=== PATIENT | female | born 1985 | race Caucasian/White ===

== ENCOUNTER 2018-03-14 19:08 | Emergency (ER) | payer MEDICAID, SELFPAY ==
[2018-03-14 19:32] VITALS: PULSE 110; RESP 16; TEMP 36.5; O2SAT 99
--- NOTE | 2018-03-14 19:44 | W.ED.GENAD ---
Discharge Plan Disposition Patient Disposition: HOME Condition: Stable Discharge Details Chief Complaint: Sorethroat Clinical Impression: Acute pharyngitis Primary Care Provider: Karma Schafer ED Provider: Jason Vigil Discharge Instructions Instructions: Pharyngitis (ED) Additional Instructions: Home to rest. Warm, salt water gargles to aid in relieving discomfort. Small, frequent sips of fluids to maintain hydration. You received a dose of dexamethasone for its anti-inflammatory properties which will help your discomfort. May use Tylenol as needed for aches, pains. Return for any acute concern Medical Decision Making 32-year-old female with fever and sore throat. She 6 months . She arrives with a temperature of 36, pleasant and interactive with exam reveals an erythematous tonsillar pillars. Differential diagnosis includes viral syndrome versus streptococcal pharyngitis. Patient referred for rapid strep which is negative. I do feel she has pharyngitis. Discussed other options to treat including a single dose of dexamethasone. HPI General Mode of arrival: ambulatory. Date/Time Provider Initiated Documentation: 03/14/18 19:33. Limitations to Documentation: no limitations. Information obtained by: patient. History of Present Illness 32 year old F presents to the emergency department with the chief complaint of Sore throat and fever, positive sick contact with her father, described as moderate, Quality is described as aching, and is localized to the mouth. Patient reports no radiation. Patient started experiencing this day(s) and it has been constant. No relieving factors improve symptom(s), No exacerbating factors reported . Patient notes no other symptoms.. Patient did receive the following treatments prior to arrival, none Related Data Allergies Allergy/AdvReac Type Severity Reaction Status Date / Time No Known Allergies Allergy Unverified 03/14/18 19:32 General Stated Complaint: Sorethroat ARLENE: 3 Review of Systems Review of Systems 4 systems reviewed and otherwise - [facility] Surgical History Cholecystectomy (06/12/16) Social History Smoking/Tobacco Use Status: Never Exam Narrative Exam Narrative: GEN: awake, alert, oriented 3. Pleasant, well groomed, interactive. HEAD: Normocephalic, atraumatic ENT: Mucous membranes moist, oropharynx with erythematous tonsillar pillars without evidence of visible exudate and no asymmetry, External ear exam unremarkable, TMs unremarkable EYES: PERRL, EOMI NECK: Full ROM, no JOSELO, no menigismus CHEST/RESP: Nontender, clear to auscultation bilateral, no wheeze/rhonchi/rales CARDIOVASCULAR: RRR, no murmur, rub juanita. 2+ Rad pulse bilateral EXT: Full ROM, no edema, no rash Neuro: Grossly normal neurologic exam, conversant, interactive. Psych: Speech fluent, thoughts congruent, affect normal Course Vital Signs Temperature 36.5 C 03/14/18 19:32 Pulse 110 H 03/14/18 19:32 Respiratory Rate 16 03/14/18 19:32 Pulse Oximetry 99 03/14/18 19:32 Temperature 36.5 C 03/14/18 19:32 Temperature Source Temporal Artery Scan 03/14/18 19:32 Pulse 110 H 03/14/18 19:32 Respiratory Rate 16 03/14/18 19:32 Respiratory Effort 03/14/18 19:32 Blood Pressure Position Sitting 03/14/18 19:32 Pulse Oximetry 99 03/14/18 19:32 Oxygen Delivery Method Room Air 03/14/18 19:32 Oxygen Flow Rate 0 03/14/18 19:32
[2018-03-14] MEDS: Dexamethasone 4 MG TAB 10 MG PO (20:27)
[2018-03-14 20:29] VITALS: BP 114/73; PULSE 103; RESP 16; TEMP 37.2; O2SAT 97
== END 2018-03-14 20:33 | disposition home or self-care (01) ==
PROVIDERS: Emergency Provider Emergency Medicine; PCP Family Medicine
DX: O99.89 Other specified diseases and conditions complicating pregnancy, childbirth and the puerperium (principal); J02.9 Acute pharyngitis, unspecified; Z3A.26 26 weeks gestation of pregnancy
CPT/HCPCS: 87880; 99283; J8540

== ENCOUNTER 2018-05-02 14:04 | Outpatient (CLI) | payer MEDICAID, SELFPAY ==
[2018-05-02] MEDS: Betamet Acet/Betamet Na Ph Inj. 30 MG/5 ML 12 MG IM (14:33)
== END 2018-05-02 14:24 ==
PROVIDERS: PCP Family Medicine; Visit Provider Advanced Practice Midwife
DX: O26.613 Liver and biliary tract disorders in pregnancy, third trimester (principal); K83.1 Obstruction of bile duct; Z3A.34 34 weeks gestation of pregnancy
CPT/HCPCS: 96372; 59025; J0702

== ENCOUNTER 2018-05-02 14:47 | Outpatient (CLI) | payer MEDICAID, SELFPAY ==
[2018-05-02 15:04] LABS: Abs Immature Grans 0.06 k/cumm (0.0-0.09); Absolute Basophil Count 0.01 k/cumm (0.0-0.2); Absolute Lymphocyte Count 1.76 k/cumm (1.2-3.4); Absolute Monocyte Count 0.79 k/cumm (0.11-0.7); Absolute Neutrophil Count 6.47 k/cumm (1.2-6.7); Basophils % 0.1; Eosinophils % 1.1; HCT 32.7 % (36.0-46.0); HGB 11.2 g/dL (12.0-15.5); Immature Grans % 0.7; Lymphocytes % 19.2; Mean Corp. HGB Concentration 34.3 g/dL (32.0-36.0); Mean Corpuscular Hemoglobin 30.4 pg (27.0-33.0); Mean Corpuscular Volume 88.6 fL (80-95); Mean Platelet Volume 11.1 fL (8.0-11.0); Monocytes % 8.6; Neutrophils % 70.3; Platelet Count 216 x1000/uL (130-400); RBC 3.69 m/cumm (4.00-5.20); RBC Distribution Width 12.8 % (11.7-14.6); White Blood Cell Count 9.19 k/cumm (4.4-10.8)
[2018-05-02 15:49] LABS: ALT 44 U/L (12-78); AST 19 U/L (15-37); Albumin 2.9 g/dL (3.4-5.0); Alkaline Phosphatase 125 U/L (46-116); Anion Gap 11.2 mmol/L (3-11); BUN 10 mg/dL (7-18); Bilirubin, Total 0.2 mg/dL (0.2-1.0); CO2 22.8 mmol/L (21.0-32.0); CREATININE 0.53 mg/dL (0.55-1.02); Calcium 9.1 mg/dL (8.5-10.1); Chloride 104 mmol/L (98-107); Glucose 98 mg/dL (70-100); Potassium 4.3 mmol/L (3.5-5.1); Sodium 138 mmol/L (136-145); Total Protein 6.6 g/dL (6.4-8.2)
== END 2018-05-02 15:07 ==
PROVIDERS: Obstetrics & Gynecology; PCP Family Medicine; Visit Provider Advanced Practice Midwife
DX: O26.613 Liver and biliary tract disorders in pregnancy, third trimester (principal); K83.1 Obstruction of bile duct
CPT/HCPCS: 36415; 80053; 85025

== ENCOUNTER 2018-05-03 14:52 | Outpatient (CLI) | payer MEDICAID, SELFPAY ==
[2018-05-03] MEDS: Betamet Acet/Betamet Na Ph Inj. 30 MG/5 ML 12 MG IM (15:25)
== END 2018-05-03 15:12 ==
PROVIDERS: PCP Family Medicine; Visit Provider Obstetrics & Gynecology Gynecology
DX: O26.613 Liver and biliary tract disorders in pregnancy, third trimester (principal); K83.1 Obstruction of bile duct; Z3A.35 35 weeks gestation of pregnancy
CPT/HCPCS: 96372; 59025; J0702

== ENCOUNTER 2018-05-04 19:43 | Observation (INO) | payer MEDICAID, SELFPAY | END 2018-05-04 20:44 | disposition home or self-care (01) | LOC: OBS 19:45 | PROVIDERS: Admitting Provider Obstetrics & Gynecology Gynecology; PCP Family Medicine; Visit Provider Obstetrics & Gynecology Gynecology | DX: O36.8130 Decreased fetal movements, third trimester, not applicable or unspecified (principal); Z3A.35 35 weeks gestation of pregnancy; O26.613 Liver and biliary tract disorders in pregnancy, third trimester; K83.1 Obstruction of bile duct | CPT/HCPCS: 59025; G0378 ==

== ENCOUNTER 2018-05-06 16:02 | Outpatient (REF) | payer MEDICAID, SELFPAY | END 2018-05-06 16:22 | LOC: LBN 16:02 | PROVIDERS: PCP Family Medicine; Visit Provider Obstetrics & Gynecology Gynecology | DX: Z34.93 Encounter for supervision of normal pregnancy, unspecified, third trimester (principal); Z36.85 Encounter for antenatal screening for Streptococcus B | CPT/HCPCS: 87081 ==

== ENCOUNTER 2018-05-10 09:54 | Outpatient (CLI) | payer MEDICAID, SELFPAY | END 2018-05-10 10:14 | PROVIDERS: PCP Family Medicine; Visit Provider Obstetrics & Gynecology Gynecology | DX: O26.613 Liver and biliary tract disorders in pregnancy, third trimester (principal); K83.1 Obstruction of bile duct; Z3A.36 36 weeks gestation of pregnancy | CPT/HCPCS: 59025 ==

== ENCOUNTER 2018-05-11 02:11 | Outpatient (CLI) | payer MEDICAID, SELFPAY ==
[2018-05-11 11:16] LABS: ALT 32 U/L (12-78); AST 17 U/L (15-37); Alkaline Phosphatase 123 U/L (46-116); Anion Gap 12.2 mmol/L (3-11); BUN 11 mg/dL (7-18); Bilirubin, Total 0.3 mg/dL (0.2-1.0); CO2 22.8 mmol/L (21.0-32.0); CREATININE 0.52 mg/dL (0.55-1.02); Calcium 9.1 mg/dL (8.5-10.1); Chloride 101 mmol/L (98-107); Glucose 86 mg/dL (70-100); Potassium 4.1 mmol/L (3.5-5.1); Sodium 136 mmol/L (136-145); Total Protein 6.9 g/dL (6.4-8.2)
[2018-05-12 15:55] LABS: Bile Acids, Total 4 mcmol/L (<=10)
== END 2018-05-11 02:31 ==
PROVIDERS: PCP Family Medicine; Visit Provider Obstetrics & Gynecology Gynecology
DX: O26.613 Liver and biliary tract disorders in pregnancy, third trimester (principal); K83.1 Obstruction of bile duct
CPT/HCPCS: 36415; 80053; 82239

== ENCOUNTER 2018-05-11 11:23 | Outpatient (CLI) | payer MEDICAID, SELFPAY | END 2018-05-11 11:43 | PROVIDERS: PCP Family Medicine; Visit Provider Advanced Practice Midwife | DX: R69 Illness, unspecified (principal) ==

== ENCOUNTER 2018-05-13 11:44 | Outpatient (CLI) | payer MEDICAID, SELFPAY | END 2018-05-13 12:04 | PROVIDERS: PCP Family Medicine; Visit Provider Obstetrics & Gynecology | DX: O26.613 Liver and biliary tract disorders in pregnancy, third trimester (principal); K83.1 Obstruction of bile duct; Z3A.36 36 weeks gestation of pregnancy | CPT/HCPCS: 59025 ==

== ENCOUNTER 2018-05-16 20:59 | Inpatient (IN) | payer MEDICAID, SELFPAY ==
--- NOTE | 2018-05-16 21:24 | W.PM.HP.N ---
Date of service: 05/16/18 Time of Service: 21:31 Assessment and Plan (1) Cholestasis during in third trimester: Current visit: Yes Status: Acute We will proceed with Gallardo ripening of cervix and oxytocin induction of labor in the morning. Patient has consented to the induction of labor after counseling regarding the risks and benefits to the fetus of a late delivery. (2) : Current visit: No Status: Acute History of Present Illness Chief Complaint: Cholestasis of at 36w3d EGA Narrative: Patient is a 32-year-old female with an EDC of 06/10/18 who presents for IOL with a diagnosis of cholestasis of . Course Transfer of care at 33 weeks EGA from of [facility]. Patient was under the impression that she would not be allowed to have a vaginal center from the hospital secondary to a LGA baby and a questionable shoulder dystocia with previous . Issues this - Cholestasis of . Diagnosed in the third trimester treated successfully with Ursodiol 300mg TID with normalization of LFTs and bile salts. Her most recent testing on 05/13/2017 normal LFTs/normal vital cells. Patient has been monitored with twice weekly NSTs and was counseled regarding induction of labor between 36 and 37 weeks EGA. -History of LGA infant. of a 9 pound 6 ounce female at 40 weeks EGA. Patient did not require having a shoulder dystocia per report no extra maneuvers were required to deliver the infant. -Social stressors. Patient and her are currently living apart. He will be present during labor and delivery. Total weight gain 10 pounds. 3rd trimester blood pressure 130/80. Size has been equal to dates. morphology ultrasound. Review of Systems Constitutional Comments: Reports feeling anxious about the induction of labor. Genitourinary Comments: No contractions good movement Musculoskeletal Comments: No edema PFSH Medical History Abnormal Pap smear of cervix (Acute) Depression (Chronic) Cholestasis during in third trimester (Acute) (Acute) Biliary colic (Resolved) Surgical History Cholecystectomy (Resolved 06/12/16) Social History Smoking/Tobacco Use Status: Never Drug use: Never Household members: children and other Details: living with her mom cathleen daughter Pooja. Estranged from FOB/H Mike. Number of Children: 1 Do you feel safe in your relationship?: Yes History History 2 Para 1 Hx # Term Pregnancies 1 Multiple births Hx # Pregnancies Ectopic pregnancies AB induced Hx Number of Living Children 1 AB spontaneous Past Pregnancies Del. Date GA/Weeks # Outcome Route Wgt Sex Labor Lgth Anesthesia Location Prov Complic Unknown 40 vaginal 9 lb 6 oz Female shoulder dystocia Delivery Date: On 05/06/18 @ 16:48 Chelsie Fontanez pt does not recall having SD. No extra maneuvers required. No injury to infant. Name: Pooja. Meds Home Medications Medication Instructions Recorded Confirmed Type 1 tab PO DAILY 04/25/18 05/10/18 History vitamin,calcium,yhkzvnya-gcds-lfvxf acid tablet ursodiol 300 mg capsule 300 mg PO TID cap 05/02/18 05/10/18 History Allergies Allergy/AdvReac Type Severity Reaction Status Date / Time No Known Allergies Allergy Unverified 05/06/18 13:00 Exam Const General: comfortable and anxious Nutritional Appearance: average body habitus Orientation: awake and oriented x3 Resp Effort & Inspection: normal respiratory effort Auscultation: clear to auscultation bilaterally Cardio Rate: regular rate Rhythm: regular rhythm Heart Sounds: S1 normal and S2 normal GI Inspection: other (Gravid estimated weight 3200 gms) Palpation: soft, no hepatosplenomegaly and other Speculum Exam - Cervix: normal appearance of the cervix and other (No effacement, no dilation on visual inspection) OB/External & Speculum: external exam normal Other: After verbal consent was obtained a bivalve speculum was placed into the vagina the cervix was cleansed with Betadine a 24 Lao Gallardo catheter was inserted past the internal loss and the Gallardo bulb insufflated with 30 cc of normal saline. Gallardo and was attached to the patient's leg. She tolerated procedure well. Skin General skin exam: no rashes or lesions noted Neuro DTR's: Rt Patellar: 0, Lt Patellar: 0, Rt Ankle: 1+ and Lt Ankle: 1+ Extrem General: normal to inspection, full ROM and normal capillary refill Results Labs : 05/16/18 21:27 05/16/18 21:27
--- NOTE | 2018-05-16 21:37 | HPE_ITS ---
Date of service: 05/16/18 Time of Service: 21:31 Assessment and Plan (1) Cholestasis during in third trimester: Current visit: Yes Status: Acute We will proceed with Gallardo ripening of cervix and oxytocin induction of labor in the morning. Patient has consented to the induction of labor after counseling regarding the risks and benefits to the fetus of a late delivery. (2) : Current visit: No Status: Acute History of Present Illness Chief Complaint: Cholestasis of at 36w3d EGA Narrative: Patient is a 32-year-old female with an EDC of 06/10/18 who presents for IOL with a adriane gnosis of cholestasis of . Course [facility] care at [facility]GA [facility] Patient was under the impression that she would not be allowed to have a vaginal center from the hospital secondary to a LGA baby and a questionable shoulder dystocia with previous . Issues this - Cholestasis of . Diagnosed in the third trimester treated successfully with Ursodiol 300mg TID with normalization of LFTs and bile salts. Her most recent testing on 05/13/2017 normal LFTs/normal vital cells. Patient has been monitored with twice weekly NSTs and was counseled regarding induction of labor between 36 and 37 weeks EGA. -History of LGA . of a 9 pound 6 ounce female at 40 weeks EGA. Patient did not require having a shoulder dystocia per report no extra maneuvers were required to deliver the infant. -Social stressors. Patient and her are currently living apart. He will be present during labor and delivery. Total weight gain 10 pounds. 3rd trimester blood pressure 130/80. Size has been equal to dates. morphology ultrasound. Review of Systems Constitutional Comments: Reports feeling anxious about the induction of labor. Genitourinary Comments: No contractions good movement Musculoskeletal Comments: No edema PFSH Medical History Abnormal Pap smear of cervix (Acute) Depression (Chronic) Cholestasis during in third trimester (Acute) (Acute) Biliary colic (Resolved) Surgical History Cholecystectomy (Resolved 06/12/16) Social History Smoking/Tobacco Use Status: Never Drug use: Never Household members: children and other Details: living with her mom cathleen daughter Pooja. Estranged from FOB/H Mike. Number of Children: 1 Do you feel safe in your relationship?: Yes History History 2 Para 1 Hx # Term Pregnancies 1 Multiple births Hx # Pregnancies Ectopic pregnancies AB induced Hx Number of Living Children 1 AB spontaneous Past Pregnancies Del. Date GA/Weeks # Outcome Route Wgt Sex Labor Lgth Anesthesia Location Prov Complic Unknown 40 vaginal 9 lb 6 oz Female shoulder dystocia Delivery Date: On 05/06/18 @ 16:48 Chelsie Fontanez pt does not recall having SD. No extra maneuvers required. No injury to . Name: Pooja. Meds Home Medications Medication Instructions Recorded Confirmed Type 1 tab PO DAILY 04/25/18 05/10/18 History vitamin,calcium,mxbzzzor-msnr-psroe acid tablet ursodiol 300 mg capsule 300 mg PO TID cap 05/02/18 05/10/18 History Allergies Allergy/AdvReac Type Severity Reaction Status Date / Time No Known Allergies Allergy Unverified 05/06/18 13:00 Exam Const General: comfortable and anxious Nutritional Appearance: average body habitus Orientation: awake and oriented x3 Resp Effort & Inspection: normal respiratory effort Auscultation: clear to auscultation bilaterally Cardio Rate: regular rate Rhythm: regular rhythm Heart Sounds: S1 normal and S2 normal GI Inspection: other (Gravid estimated weight 3200 gms) Palpation: soft, no hepatosplenomegaly and other Speculum Exam - Cervix: normal appearance of the cervix and other (No effacement, no dilation on visual inspection) OB/External & Speculum: external exam normal Other: After verbal consent was obtained a bivalve speculum was placed into the vagina the cervix was cleansed with Betadine a 24 Y[place] Gallardo catheter was inserted past the internal loss and the Gallardo bulb insufflated with 30 cc of normal saline. Gallardo and was attached to the patient's leg. She tolerated procedure well. Skin General skin exam: no rashes or lesions noted Neuro DTR's: Rt Patellar: 0, Lt Patellar: 0, Rt Ankle: 1+ and Lt Ankle: 1+ Extrem General: normal to inspection, full ROM and normal capillary refill Results Labs : 05/16/18 21:27 05/16/18 21:27
[2018-05-16 21:43] LABS: HCT 33.8 % (36.0-46.0); HGB 11.4 g/dL (12.0-15.5); Mean Corp. HGB Concentration 33.7 g/dL (32.0-36.0); Mean Corpuscular Hemoglobin 29.8 pg (27.0-33.0); Mean Corpuscular Volume 88.5 fL (80-95); Mean Platelet Volume 11.2 fL (8.0-11.0); Platelet Count 214 x1000/uL (130-400); RBC 3.82 m/cumm (4.00-5.20); RBC Distribution Width 13.2 % (11.7-14.6); White Blood Cell Count 10.57 k/cumm (4.4-10.8)
[2018-05-16 21:54] LABS: ALT 31 U/L (12-78); AST 14 U/L (15-37); Albumin 2.9 g/dL (3.4-5.0); Alkaline Phosphatase 137 U/L (46-116); Anion Gap 14.4 mmol/L (3-11); BUN 14 mg/dL (7-18); Bilirubin, Total 0.2 mg/dL (0.2-1.0); CO2 20.6 mmol/L (21.0-32.0); CREATININE 0.57 mg/dL (0.55-1.02); Calcium 9.3 mg/dL (8.5-10.1); Chloride 102 mmol/L (98-107); Glucose 111 mg/dL (70-100); Potassium 3.2 mmol/L (3.5-5.1); Sodium 137 mmol/L (136-145); Total Protein 7.3 g/dL (6.4-8.2)
[2018-05-16] MEDS: diphenhydrAMINE 25 MG CAP PO (23:40)
[2018-05-17] MEDS: Lactated Ringers 1,000 ML 125 ML IV ×3 (06:50→18:37)
[2018-05-17] MEDS: Ursodiol 300 MG CAP PO (08:53)
[2018-05-18] MEDS: Ursodiol 300 MG CAP PO (08:55)
--- NOTE | 2018-05-18 09:43 | W.PM.DS.N ---
DS: Diagnosis Discharge Diagnosis (1) Cholestasis during in third trimester: Status: Acute (2) : Status: Acute Discharge Plan Disposition Patient Disposition: HOME Condition: Fair Discharge Details Reason For Visit: [id number] EGLes CHOLESTASIS OF Admit Date/Time: 05/16/18 20:59 Admit Provider: Chelsie Fontanez Attending Provider: Chelsie Fontanez Primary Care Provider: Karma Schafer [place] [facility] Course Hospital Course: Admitted at 36-6/7 weeks estimated gestational age to the center for Gallardo balloon cervical ripening and induction of labor for well-controlled cholestasis of . Gallardo was inserted evening of 05/16/2018 and by the following morning she was 3 cm dilated. Oxytocin induction of labor that was then performed she would not to have a spontaneous vaginal delivery of a viable male infant over a first-degree perineal laceration. 150 cc blood loss shortly after delivery the infant was noted to have decreased oxygen saturation and required oxygen. He was subsequently transferred to NICU at [facility]. Patient was discharged to home with the intention traveling to [facility] on day 1. She will stoip her Ursodiol prescription at discharge. Home Meds and New Rx's Prescriptions: No Action prenat.vits,uma,gqa-vump-pinpo tablet 1 tab PO DAILY RF: 0 ursodiol 300 mg capsule 300 mg PO TID RF: 0 Discharge Instructions Stand Alone Forms: BC Instructions, BC Post Vaginal Deliver Activity:: Activity as Tolerated Equipment/Supplies:: No Equipment Needed Diet:: As Tolerated Discharge Orders Discharge Orders: Discharge Order (Routine); Ordered 05/18/18 Ordered By: Chelsie Fontanez Exam Narrative Exam Narrative: Patient reports that she did not sleep well during the night was anxious about the status of her infant Rah. Both pink discharge this morning she would like to travel to [facility] to see her . She was given discharge instructions regarding activity level she will use Motrin for discomfort. She plans to pump breastmilk. Const General: comfortable and no acute distress Orientation: alert, awake and oriented x3 Chest Breast inspection: normal inspection of the breasts Resp Effort & Inspection: normal respiratory effort GI Palpation: soft (Fundus firm at 2 fingerbreadths below the umbilicus no RUQ) External Female Exam: external appearance normal (Sutures are well approximated no labial or perineal edema) Neuro General: no focal motor deficits Extrem General: normal to inspection, full ROM and normal capillary refill Psych Appearance: grossly normal Mental Status: mental status grossly normal (Patient reports that she feels better now that her infant is on room air an) DS: Data Vitals/I&O Vitals and I&O: Intake & Output 05/17/18 05/17/18 05/18/18 11:59 23:59 11:59 Intake Total 1472.917 / 1472.917 Balance 1472.917 / 1472.917 Weight 175 lb Intake: IV 1472.917 / 1472.917 PFSH Medical History Abnormal Pap smear of cervix (Acute) Depression (Chronic) Cholestasis during in third trimester (Acute) (Acute) Biliary colic (Resolved) Surgical History Cholecystectomy (Resolved 06/12/16) Social History Smoking/Tobacco Use Status: Never Drug use: Never Household members: children and other Details: living with her mom cathleen daughter Pooja. Estranged from [facility]. Number of Children: 1 Do you feel safe in your relationship?: Yes History History 2 Para 2 Hx # Term Pregnancies 2 Multiple births Hx # Pregnancies Ectopic pregnancies AB induced Hx Number of Living Children 2 AB spontaneous Past Pregnancies Del. Date GA/Weeks # Outcome Route Wgt Sex Labor Lgth Anesthesia Location Prov Complic Unknown 40 vaginal 9 lb 6 oz Female shoulder dystocia 05/17/18 37 No Successful vaginal 6 lb 15 oz aoc Delivery Date: 05/17/18 On 05/18/18 @ 09:47 Chelsie Fontanez IOL at 37wEGA for stable cholestasis. SVD. Adelina Monreal. Transferred to [facility] NICU after resp issues. Delivery Date: On 05/06/18 @ 16:48 Chelsie Fontanez pt does not recall having SD. No extra maneuvers required. No injury to infant. Name:
--- NOTE | 2018-05-18 09:48 | DSE_ITS ---
DS: Diagnosis Discharge Diagnosis (1) Cholestasis during in third trimester: Status: Acute (2) : Status: Acute Discharge Plan Disposition Patient Disposition: HOME Condition: Fair Discharge Details Reason For Visit: [id number] EGLes CHOLESTASIS OF Admit Date/Time: 05/16/18 20:59 Admit Provider: Chelsie Fontanez Attending Provider: Chelsie Fontanez Primary Care Provider: Karma Schafer [place] [facility] Course Hospital Course: Admitted at 36-6/7 weeks estimated gestational age to the center for Gallardo balloon cervical ripening and induction of labor for well-controlled cholestasis of . Gallardo was inserted evening of 05/16/2018 and by the following morning she was 3 cm dilated. Oxytocin induction of labor that was then performed she would not to have a spontaneous vaginal delivery of a viable male infant over a first-degree perineal laceration. 150 cc blood loss shortly after delivery the infant was noted to have decreased oxygen saturation and required oxygen. He was subsequently transferred to NICU at [facility]. Patient was discharged to home with the intention traveling to [facility] on day 1. She will stoip her Ursodiol prescription at discharge. Home Meds and New Rx's Prescriptions: No Action prenat.vits,uma,xxw-pmdb-gvpxi tablet 1 tab PO DAILY RF: 0 ursodiol 300 mg capsule 300 mg PO TID RF: 0 Discharge Instructions Stand Alone Forms: BC Instructions, BC Post Vaginal Deliver Activity:: Activity as Tolerated Equipment/Supplies:: No Equipment Needed Diet:: As Tolerated Discharge Orders Discharge Orders: Discharge Order (Routine); Ordered 05/18/18 Ordered By: Chelsie Fontanez Exam Narrative Exam Narrative: Patient reports that she did not sleep well during the night was anxious about the status of her infant Rah. Both pink discharge this morning she would like to travel to [facility] to see her . She was given discharge instructions regarding activity level she will use Motrin for discomfort. She plans to pump breastmilk. Const General: comfortable and no acute distress Orientation: alert, awake and oriented x3 Chest Breast inspection: normal inspection of the breasts Resp Effort & Inspection: normal respiratory effort GI Palpation: soft (Fundus firm at 2 fingerbreadths below the umbilicus no RUQ) External Female Exam: external appearance normal (Sutures are well approximated no labial or perineal edema) Neuro General: no focal motor deficits Extrem General: normal to inspection, full ROM and normal capillary refill Psych Appearance: grossly normal Mental Status: mental status grossly normal (Patient reports that she feels better now that her infant is on room air an) DS: Data Vitals/I&O Vitals and I&O: Intake & Output 05/17/18 05/17/18 05/18/18 11:59 23:59 11:59 Intake Total 1472.917 / 1472.917 Balance 1472.917 / 1472.917 Weight 175 lb Intake: IV 1472.917 / 1472.917 PFSH Medical History Abnormal Pap smear of cervix (Acute) Depression (Chronic) Cholestasis during in third trimester (Acute) (Acute) Biliary colic (Resolved) Surgical History Cholecystectomy (Resolved 06/12/16) Social History Smoking/Tobacco Use Status: Never Drug use: Never Household members: children and other Details: living with her mom cathleen daughter Pooja. Estranged from [facility]. Number of Children: 1 Do you feel safe in your relationship?: Yes History History 2 Para 2 Hx # Term Pregnancies 2 Multiple births Hx # Pregnancies Ectopic pregnancies AB induced Hx Number of Living Children 2 AB spontaneous Past Pregnancies Del. Date GA/Weeks # Outcome Route Wgt Sex Labor Lgth Anesthesia Location Prov Complic Unknown 40 vaginal 9 lb 6 oz Female shoulder dystocia 05/17/18 37 No Successful vaginal 6 lb 15 oz aoc Delivery Date: 05/17/18 On 05/18/18 @ 09:47 Chelsie Fontanez IOL at 37wEGA for stable cholestasis. SVD. Adelina Monreal. Transferred to [facility] NICU after resp issues. Delivery Date: On 05/06/18 @ 16:48 Chelsie Fontanez pt does not recall having SD. No extra maneuvers required. No injury to infant. Name:
== END 2018-05-18 11:20 | disposition home or self-care (01) | DRG 805 ==
PROVIDERS: Admitting Provider Obstetrics & Gynecology Gynecology; PCP Family Medicine; Visit Provider Obstetrics & Gynecology Gynecology
DX: O70.0 First degree perineal laceration during delivery (principal); Z37.0 Single live birth; K83.1 Obstruction of bile duct; Z3A.36 36 weeks gestation of pregnancy; O26.613 Liver and biliary tract disorders in pregnancy, third trimester; O99.344 Other mental disorders complicating childbirth; F32.9 Major depressive disorder, single episode, unspecified
CPT/HCPCS: 80053; 85027; 86850; 86900; 86901; 87340; 87389; NC; 86762; J3010; J3490

== ENCOUNTER 2018-05-24 14:52 | Outpatient (CLI) | payer MEDICAID, SELFPAY ==
[2018-05-24 15:33] LABS: Abs Immature Grans 0.07 k/cumm (0.0-0.09); Absolute Basophil Count 0.02 k/cumm (0.0-0.2); Absolute Eosinophil Count 0.17 k/cumm (0.0-0.7); Absolute Lymphocyte Count 2.11 k/cumm (1.2-3.4); Absolute Monocyte Count 0.61 k/cumm (0.11-0.7); Absolute Neutrophil Count 3.57 k/cumm (1.2-6.7); Basophils % 0.3; Eosinophils % 2.6; HCT 36.8 % (36.0-46.0); HGB 12.2 g/dL (12.0-15.5); Immature Grans % 1.1; Lymphocytes % 32.2; Mean Corp. HGB Concentration 33.2 g/dL (32.0-36.0); Mean Corpuscular Hemoglobin 29.6 pg (27.0-33.0); Mean Corpuscular Volume 89.3 fL (80-95); Mean Platelet Volume 10.6 fL (8.0-11.0); Monocytes % 9.3; Neutrophils % 54.5; Platelet Count 293 x1000/uL (130-400); RBC 4.12 m/cumm (4.00-5.20); RBC Distribution Width 13.1 % (11.7-14.6); White Blood Cell Count 6.55 k/cumm (4.4-10.8)
[2018-05-24 16:37] LABS: ALT 52 U/L (12-78); AST 24 U/L (15-37); Albumin 3.3 g/dL (3.4-5.0); Alkaline Phosphatase 124 U/L (46-116); BUN 17 mg/dL (7-18); Bilirubin, Total 0.3 mg/dL (0.2-1.0); Calcium 8.9 mg/dL (8.5-10.1); Chloride 106 mmol/L (98-107); Glucose 90 mg/dL (70-100); Potassium 4.2 mmol/L (3.5-5.1); Sodium 141 mmol/L (136-145); Total Protein 7.1 g/dL (6.4-8.2)
== END 2018-05-24 15:12 ==
PROVIDERS: PCP Family Medicine; Visit Provider Obstetrics & Gynecology
DX: O26.613 Liver and biliary tract disorders in pregnancy, third trimester (principal); K83.1 Obstruction of bile duct
CPT/HCPCS: 36415; 80053; 85025

== ENCOUNTER 2018-12-15 13:50 | Outpatient (REF) | payer MEDICAID, SELFPAY ==
[2018-12-17 15:01] LABS: HSV 1 DNA Result Negative; HSV 2 DNA Result Negative; Specimen Description Nasal; Varicella Zoster DNA Result Negative
== END 2018-12-15 14:10 ==
LOC: NCHCN 13:50
PROVIDERS: PCP Family Medicine; Visit Provider Nurse Practitioner Family
DX: J34.89 Other specified disorders of nose and nasal sinuses (principal)
CPT/HCPCS: 87077; 87529; 87798; 87070; 87186

== ENCOUNTER 2019-03-01 11:52 | Emergency (ER) | payer MEDICAID, SELFPAY ==
[2019-03-01] VITALS (25 sets, daily range): BP systolic 107–139; BP diastolic 71–92; PULSE 67–84; RESP 11–23; TEMP 36.6; O2SAT 96–98
[2019-03-01] MEDS: Ibuprofen 600 MG TAB PO (12:42)
--- NOTE | 2019-03-01 12:45 | W.ED.GENAD ---
Discharge Plan Disposition Patient Disposition: HOME Condition: Improving Discharge Details Chief Complaint: Chest Pain Clinical Impression: Acute chest wall pain Primary Care Provider: Karma Schafer ED Provider: [place] Home Meds and New Rx's Prescriptions: No Action prenat.vits,uma,noc-vcmo-rthon tablet 1 tab PO DAILY RF: 0 citalopram [Celexa] 10 mg tablet 20 mg PO DAILY RF: 0 cholecalciferol (vitamin D3) 2,000 unit tablet 6,000 unit PO DAILY RF: 0 ferrous sulfate [Feosol] 325 mg (65 mg iron) tablet 325 mg PO DAILY RF: 0 Discharge Instructions Instructions: Chest Wall Pain (ED) Additional Instructions: 1. Drink plenty of fluids. 2. Continue all medications as prescribed. 3. Acetaminophen 1000mg every 4 hours (up to 5 time a day) and/or ibuprofen 600mg every 6 hours as needed for fever or pain. 4. Activity as tolerated. Return to the Emergency Department (ED) if your condition worsens, does not improve as expected, or for ANY other concerns. Specifically, return if you have new or uncontrolled pain, worsening fever, difficulty breathing, vomiting, or are unable to drink fluids. Medical Decision Making 33-year-old with a past medical history of cholestasis/biliary disease associate with . Transferred here via EMS after developing sudden onset of right-sided chest wall pain while breast-feeding her 9-month-old . Pain was sudden onset and localized to her right lateral chest. Symptoms were worsened by positional change and palpation. On arrival in no distress with focal right chest wall tenderness which reproduced subjective pain. EKG, bedside echo, and labs nondiagnostic. Clinically improved after receiving oral ibuprofen. Discussed likely musculoskeletal etiology with low pretest probability of ACS, PE, great vessel disease with both patient and her . Discharged with a plan for OTC analgesia and outpatient follow-up. Given usual and customary return instructions prior to discharge. Medical Records Medical records reviewed: Yes I reviewed the patient's medical records. Imaging Data Radiologic Study: Attestation: I personally reviewed and interpreted this imaging study as follows: Imaging: Ultrasound (Bedside cardiac study: No pericardial effusion, normal LVEF, no RV strain. Dependent pulmonary views with no evidence of pleural effusion, focal consolidation, or interstitial syndrome. Interviewed independently contemporaneously by myself. Images saved.) Lab Data Lab results reviewed: Yes I reviewed the patient's lab results. Lab results narrative: Lab Results 03/01/19 Range/Units 13:15 Sodium 141 (136-145) mmol/L Potassium 3.8 (3.5-5.1) mmol/L Chloride 105 (98-107) mmol/L Carbon Dioxide 25.9 (21.0-32.0) mmol/L Anion Gap 10.1 (3-11) mmol/L BUN 16 (7-18) mg/dL Creatinine 0.50 L (0.55-1.02) mg/dL Estimated GFR/1.73 m2 >= 60.00 (mL/min/1.73m2) Glucose 90 (74-106) mg/dL Calcium 8.9 (8.5-10.1) mg/dL Total Bilirubin 0.4 (0.2-1.0) mg/dL Conjugated Bilirubin 0.09 (0.00-0.20) mg/dL AST 17 (15-37) U/L ALT 36 (14-59) U/L Alkaline Phosphatase 109 (46-116) U/L Total Protein 7.4 (6.4-8.2) g/dL Albumin 3.7 (3.4-5.0) g/dL ECG Data Attestation: I personally reviewed and interpreted this ECG (s) as follows: Prior ECG tracings: not available for review Interpretation: Sinus rhythm 81 bpm with normal axis and intervals no acute ST changes. Interpreted independently contemporaneously by myself. HPI 33-year-old woman with a past medical history which includes biliary colic/cholestasis. Transported here via EMS after developing a sudden onset of severe right chest wall pain today. Was breast-feeding her 9-month-old when she noted worsening pain localized to her right posterior lateral chest wall. Pain became maximally severe in intensity and unremitting. Pain was worse with positional change and inspiration. By time of transport here has had improvement in symptoms with persistent focal pain localized to her right lateral chest right lateral chest wall. Denies history of recent trauma, similar symptoms symptoms, palpitations, tachycardia, generalized abdominal pain. She has no history of VTE and denies atypical lower extremity pain or swelling. General Date/Time Provider Initiated Documentation: 03/01/19 12:33. Related Data Home Medications Medication Instructions Recorded Confirmed prenat.vits,uma,xae-ltgu-jerjn 1 tab PO DAILY 04/25/18 03/01/19 cholecalciferol (vitamin D3) 2,000 6,000 unit PO DAILY tab 06/07/18 03/01/19 unit tablet citalopram 10 mg tablet 20 mg PO DAILY 06/07/18 03/01/19 ferrous sulfate 325 mg (65 mg 325 mg PO DAILY tab 06/07/18 03/01/19 iron) tablet Allergies Allergy/AdvReac Type Severity Reaction Status Date / Time No Known Allergies Allergy Unverified 03/01/19 11:59 General Stated Complaint: Chest Pain ARLENE: 2 Review of Systems All systems reviewed & are unremarkable except as noted in HPI and below PFSH Medical History Abnormal Pap smear of cervix (Acute) LGSIL. Colpo during . Plan Pap PP. Biliary colic (Resolved) Cholestasis during in third trimester (Acute) 03/23/18 Bile acids 15 (<10). AST 224. ALT 613. Rx with Ursodeoxycholic Acid. Bile acids and LFTs normalized. Plan: NST's twice weekly. Del between 37-38w. Or 36w if bile acids > 40. Depression (Chronic) exacerbated with this . Currently not living with /FOB. Has psychologist. Surgical History Cholecystectomy (Resolved 06/12/16) Social History Smoking/Tobacco Use Status: Never Alcohol Intake: never Drug use: Never Substance use type: does not use Household members: children and other Details: living with her mom cathleen daughter Pooja. Estranged from B/[facility]. Number of Children: 1 Do you feel safe in your relationship?: Yes History History 2 Para 2 Hx # Term Pregnancies 2 Multiple births Hx # Pregnancies Ectopic pregnancies AB induced Hx Number of Living Children 2 AB spontaneous Past Pregnancies Del. Date GA/Weeks # Outcome Route Wgt Sex Labor Lgth Anesthesia Location Prov Complic Unknown 40 vaginal 4.252 kg Female shoulder dystocia 05/17/18 37 No Successful vaginal 3.147 kg aoc 05/17/18 No Successful vaginal Male Chelsie O'alberto Delivery Date: On 05/06/18 @ 16:48 Chelsie Fontanez pt does not recall having SD. No extra maneuvers required. No injury to infant. Name: Pooja. Delivery Date: 05/17/18 On 05/18/18 @ 09:47 Chelsie Fontanez IOL at 37wEGA for stable cholestasis. SVD. Adelina Monreal. Transferred to [facility] NICU after resp issues. Delivery Date: 05/17/18 No notes to display Exam Narrative Exam Narrative: Nursing note and vital signs have been reviewed and noted. GENERAL: alert, active, no acute distress, well -hydrated, well-nourished HEENT: atraumatic/normocephalic, PERRLA, EOMI, conjunctiva clear, external ears/canals normal, nasal mucosa normal NECK: supple, full range of motion, no mass, normal lymphadenopathy, no thyromegaly CARDIOVASCULAR: RRR, no murmurs, nl pulses, no edema PULMONARY: nl effort, no audible wheezing or stridor, nl breath sounds with no focal deficit. Focal tenderness along seventh and eighth right posterior lateral ribs which reproduced subjective pain. No significant ecchymosis, erythema, or edema appreciated. ABDOMEN: soft, non-tender, non-distended, no mass, no organomegaly EXTREMITY: normal muscle tone, all joints with FROM, no deformity or tenderness SKIN: no exanthem appreciated NEURO: gross motor exam normal, normal stance and gait PSYCH: alert and oriented, Course Vital Signs Vital signs: Vital Signs Temperature 97.9 F 03/01/19 11:55 Pulse 76 03/01/19 11:55 Respiratory Rate 20 03/01/19 11:55 Blood Pressure 139/92 H 03/01/19 11:55 Pulse Oximetry 97 03/01/19 11:55 Temperature 97.9 F 03/01/19 11:55 Temperature Source Skin 03/01/19 11:55 Pulse 78 03/01/19 12:30 Pulse 79 03/01/19 12:40 Respiratory Rate 19 03/01/19 12:40 Respiratory Effort 03/01/19 12:05 Respiratory Depth Normal 03/01/19 12:05 Respiratory Pattern Normal 03/01/19 12:05 Blood Pressure 112/78 03/01/19 12:30 Blood Pressure Mean 86 03/01/19 12:30 Blood Pressure Position Sitting 03/01/19 11:55 Pulse Oximetry 98 03/01/19 12:40 Oxygen Delivery Method Room Air 03/01/19 11:55 Oxygen Flow Rate 0 03/01/19 11:55 Pain Level 1 03/01/19 12:42 Comment 03/01/19 11:55
[2019-03-01 13:41] LABS: ALT 36 U/L (14-59); AST 17 U/L (15-37); Albumin 3.7 g/dL (3.4-5.0); Alkaline Phosphatase 109 U/L (46-116); Anion Gap 10.1 mmol/L (3-11); BUN 16 mg/dL (7-18); Bilirubin, Direct 0.09 mg/dL (0.00-0.20); Bilirubin, Total 0.4 mg/dL (0.2-1.0); CO2 25.9 mmol/L (21.0-32.0); Calcium 8.9 mg/dL (8.5-10.1); Chloride 105 mmol/L (98-107); Glucose 90 mg/dL (74-106); Potassium 3.8 mmol/L (3.5-5.1); Sodium 141 mmol/L (136-145); Total Protein 7.4 g/dL (6.4-8.2)
== END 2019-03-01 15:00 | disposition home or self-care (01) ==
PROVIDERS: Emergency Provider Emergency Medicine; PCP Family Medicine
DX: R07.81 Pleurodynia (principal)
CPT/HCPCS: 36415; 80048; 80076; 93005; 99285; 93010

== ENCOUNTER 2019-03-16 16:55 | Outpatient (REF) | payer MEDICAID, SELFPAY ==
--- NOTE | 2019-03-16 15:30 | PAPFT_PTH ---
PATIENT: Janie Thompson LOC: [facility] U#:[id number] AGE/SX: 33/F ROOM: RE03/16/[address]: Karma Schafer : 1985 BED: DIS: 03/16/2019 SPEC #: [id number] RECD: 03/17/19 13:01 STATUS: ALEXUS REDaniel #: [id number] JASMYN: 03/16/19 15:[address]: Karma Schafer DEPT: COUNT INCLUDES [facility] Cytology RECD BY: Zayda Grace Tissues: 1 - CX/ENDOCX FOR PAP SMEARS Procedures: PAP THIN PREP/UVM Screening HPV DNA PROBE Comments: [id number] (CHLAMYDIA/GC)
[2019-03-20 14:34] LABS: Chlamydia Result Negative (Negative); GC Result Negative (Negative)
== END 2019-03-16 17:15 ==
LOC: NCHCN 16:55
PROVIDERS: PCP Family Medicine; Visit Provider Family Medicine
DX: Z12.4 Encounter for screening for malignant neoplasm of cervix (principal); Z11.51 Encounter for screening for human papillomavirus (HPV); Z01.419 Encounter for gynecological examination (general) (routine) without abnormal findings
CPT/HCPCS: 87491; 87591; 88142; 87624

== ENCOUNTER 2020-03-20 03:20 | Outpatient (CLI) | payer MEDICAID, SELFPAY ==
[2020-03-21 14:06] LABS: COVID-19 RT-PCR UVMMC Result Negative (Negative)
== END 2020-03-20 03:21 | disposition home or self-care (01) ==
PROVIDERS: PCP Family Medicine; Visit Provider Nurse Practitioner
DX: G47.33 Obstructive sleep apnea (adult) (pediatric) (principal)
CPT/HCPCS: U0003

== ENCOUNTER 2021-08-19 12:27 | Outpatient (REF) | payer MEDICAID, SELFPAY ==
[2021-08-19 15:54] LABS: HCT 41.6 % (36.0-46.0); HGB 13.5 g/dL (11.2-15.7); MCHC 32.5 % (32.0-36.0); MCV 86 fL (80-95); MPV 11.1 fL (8.0-11.0); Platelet Count 349 10^3/uL (130-400); RBC 4.82 10^6/uL (3.93-5.22); RDW 12.9 % (11.7-14.6); RDW-SD 40.6 fL; WBC 6.18 10^3/uL (4.4-10.8)
[2021-08-19 16:08] LABS: ALT 45 U/L (14-59); AST 21 U/L (15-37); Alkaline Phosphatase 76 U/L (46-116); Anion Gap 7.8 mmol/L (3-11); BUN 14 mg/dL (7-18); Bilirubin, Total 0.5 mg/dL (0.2-1.0); CO2 27.2 mmol/L (21.0-32.0); CREATININE 0.7 mg/dL (0.55-1.02); Calcium 8.7 mg/dL (8.5-10.1); Calculated LDL 143 mg/dL (<100); Chloride 105 mmol/L (98-107); Cholesterol 206 mg/dL (<200); Glucose 110 mg/dL (74-106); HDL Cholesterol 54 mg/dL (40-60); Potassium 4.2 mmol/L (3.5-5.1); Sodium 140 mmol/L (136-145); Total Protein 7.8 g/dL (6.4-8.2); Triglyceride 46 mg/dL (<150)
[2021-08-21 05:04] LABS: Vitamin D 25 Total 19.4 ng/mL (30-100)
== END 2021-08-19 12:28 | disposition home or self-care (01) ==
LOC: NCHCN 12:27
PROVIDERS: PCP Family Medicine; Visit Provider Nurse Practitioner Family
DX: G47.33 Obstructive sleep apnea (adult) (pediatric) (principal); Z13.220 Encounter for screening for lipoid disorders; E55.9 Vitamin D deficiency, unspecified
CPT/HCPCS: 80053; 80061; 82306; 85027

== ENCOUNTER 2022-06-04 19:31 | Emergency (ER) | payer MEDICAID, SELFPAY ==
[2022-06-04] VITALS (28 sets, daily range): BP systolic 120–164; BP diastolic 71–100; PULSE 68–87; RESP 9–24; TEMP 37.3; O2SAT 97
--- NOTE | 2022-06-04 19:30 | RT.EKG_ITS ---
APPROVED REPORT Exam: Resting ECG Reason for Exam: CHEST PAIN Patient Location: E HR:86 bpm ECG Measurements Heart Rate 86 AXIS CA 156 P 21 QRSd 79 QRS 54 QT 355 T 11 QTc 424 Conclusion Sinus rhythm...normal P axis, V-rate 60- 99 Physician: no stemi, inverted t wave in III but unchange from prior ekg from 2019
--- NOTE | 2022-06-04 20:06 | W.ED.GENAD ---
Discharge Plan Disposition Patient Disposition: Home Condition: Good Discharge Details Clinical Impression: Chest pain Primary Care Provider: Alannah Pizano ED Provider: Isaiah Tapia Home Meds and New Rx's Prescriptions: No Action citalopram [Celexa] 10 mg tablet 20 mg PO DAILY cholecalciferol (vitamin D3) 2,000 unit tablet 6,000 unit PO DAILY Discharge Instructions Instructions: Chest Pain (ED) Additional Instructions: At this time your work-up is negative and reassuring. As you suspected I do believe that your chest pain is likely secondary to a component of stress and life. Please follow-up closely with your counselor. If you notice any worsening of your symptoms, or any new symptoms such as vomiting, diarrhea, fever, chills, shortness of breath, chest pain, numbness, weakness, or fainting , please return immediately to the emergency department for reevaluation. Please follow up with your primary care provider as soon as possible for reassessment and reevaluation. As always, it was a pleasure participating in your medical care today. Referrals: Alannah Pizano [Primary Care Provider] - Medical Decision Making 36-year-old female with a past medical history of cholecystectomy, depression, presents today for evaluation of chest pain. Patient states that for the last months she has had on and off chest tightness. It will usually last 1 to 2 hours. It is associated with stress, and not associated with exertion. It is improved. She states I am mentally calm myself down and relax. She does feel winded with exertion but has no chest tightness or chest pain. She attributes this to her lack of exercise and recent weight gain. She does have a family history positive for cardiac disease in her father, but denies any personal history of cardiac disease. She has never smoked. She does not drink alcohol. She denies any cocaine use. Denies PE risk factors such as recent long car rides, immobilization, recent surgery, prior history of DVT or PE, family history of PE or DVT, morbid obesity, exogenous estrogen and smoking, hemoptysis, history of cancer. No other complaints at this time. She does state that she feels overwhelmed with life in general, and she is worried that this is the cause of her symptoms. No other complaints. No other modifying factors. She denies any cough, fever, chills, tearing or ripping sensation, actual chest pain, or bandlike sensation around the chest. Physical exam demonstrates a well-appearing female, no signs of acute distress. Vital signs normal. PERC score is low risk. Wells score is low risk. EKG shows no STEMI. There is an inverted T wave in lead III and slight T wave abnormality in V3, but no other significant abnormalities. I suspect that the patient's symptoms are likely mood and stress related, however these are diagnoses of exclusion, and we must certainly rule out other life-threatening etiologies. Differential is low but still includes ACS, PE, symptoms are clinically inconsistent with dissection. Will evaluate for these concerning etiologies, monitor closely and reassess. Additionally with the patient's permission we will consult mental health advocates for further discussion of potential outpatient counseling and support. 1:10 AM Laboratory work-up has returned, EKG stable, troponin normal, D-dimer elevated, CTA ordered, no acute process, PE or dissection per radiology. Laboratory work-up otherwise stable. Minimal elevation in transaminases. We will send hepatitis panel for outpatient review. Patient has had slightly elevated transaminases in the past. No excessive acetaminophen use. Potentially viral. Patient has been seen and assessed by mental health. They have established outpatient follow-up. Patient feels well and feels comfortable going home. Symptoms inconsistent at this time clinically with ACS, PE dissection or other life-threatening etiology. Patient stable for home use. Discussed red flags for which to return. I have extensively reviewed the treatment plan and discharge instructions with the patient. I have addressed all patient concerns at this time. The patient was made aware of what symptoms to monitor for that would warrant a return to the emergency department. Discussed the plan with the patient, they demonstrate verbal understanding and agreement with our assessment and plan at this time. The documentation in this chart was dictated using [employer] dictation software. Please excuse any dictation errors. FINDINGS: Pulmonary arteries: Normal. No pulmonary emboli. Aorta: Unremarkable. No aortic aneurysm. No aortic dissection. Lungs: Unremarkable. No consolidation. No masses. Pleural spaces: Unremarkable. No pneumothorax. No pleural effusion. Heart: Unremarkable. No cardiomegaly. No pericardial effusion. Lymph nodes: Unremarkable. No enlarged lymph nodes. Gallbladder and bile ducts: Cholecystectomy. Bones/joints: Unremarkable. No acute fracture. Soft tissues: Unremarkable. IMPRESSION: 1. No acute cardiopulmonary disease. 2. Cholecystectomy Thank you for allowing us to participate in the care of your patient. Dictated and Authenticated by: Kami Ceballos MD 06/04/2022 10:50 PM Eastern Time ([place] & [place]) HPI General Date/Time Provider Initiated Documentation: 06/04/22 19:39. HPI Narrative: 36-year-old female with a past medical history of cholecystectomy, depression, presents today for evaluation of chest pain. Patient states that for the last months she has had on and off chest tightness. It will usually last 1 to 2 hours. It is associated with stress, and not associated with exertion. It is improved. She states I am mentally calm myself down and relax. She does feel winded with exertion but has no chest tightness or chest pain. She attributes this to her lack of exercise and recent weight gain. She does have a family history positive for cardiac disease in her father, but denies any personal history of cardiac disease. She has never smoked. She does not drink alcohol. She denies any cocaine use. Denies PE risk factors such as recent long car rides, immobilization, recent surgery, prior history of DVT or PE, family history of PE or DVT, morbid obesity, exogenous estrogen and smoking, hemoptysis, history of cancer. No other complaints at this time. She does state that she feels overwhelmed with life in general, and she is worried that this is the cause of her symptoms. No other complaints. No other modifying factors. She denies any cough, fever, chills, tearing or ripping sensation, actual chest pain, or bandlike sensation around the chest. Related Data Home Medications Medication Instructions Recorded Confirmed cholecalciferol (vitamin D3) 50 6,000 unit PO DAILY 06/07/18 06/04/22 mcg (2,000 unit) tablet citalopram 10 mg tablet (Celexa) 20 mg PO DAILY 06/07/18 06/04/22 Allergies Allergy/AdvReac Type Severity Reaction Status Date / Time seasonal Allergy Uncoded 06/04/22 19:43 General Stated Complaint: Chest Pain ARLENE: 2 Review of Systems All systems reviewed & are unremarkable except as noted in HPI and below PFSH All Active Problems (Updated 06/04/22 @ 23:06 by Isaiah Tapia DO) Chest pain (Acute) Abnormal Pap smear of cervix (Acute) LGSIL. Colpo during . Plan Pap PP. Depression (Chronic) exacerbated with this . Currently not living with /FOB. Has psychologist. Cholestasis during in third trimester (Acute) 03/23/18 Bile acids 15 (<10). AST 224. ALT 613. Rx with Ursodeoxycholic Acid. Bile acids and LFTs normalized. Plan: NST's twice weekly. Del between 37-38w. Or 36w if bile acids > 40. (Acute) IOL with 05/17/18 M. [id number] Rah. Social History Smoking/Tobacco Use Status: Never Smoking risk assessment performed?: Yes Alcohol Intake: never Drug use: Never Substance use type: does not use Household members: children and other Details: living with her mom cathleen daughter Pooja. Estranged from B/[facility]. Number of Children: 1 Do you feel safe in your relationship?: Yes History History 2 Para 2 Hx # Term Pregnancies 2 Multiple births Hx # Pregnancies Ectopic pregnancies AB induced Hx Number of Living Children 2 AB spontaneous Past Pregnancies Del. Date GA/Weeks # Preg Succ Route Wgt Sex Labor Lgth Anesthesia Location Prov Complic Unknown 40 vaginal 4252.428 g Female shoulder dystocia 05/17/18 37 No vaginal 3146.797 g aoc 05/17/18 No vaginal Male Chelsie Snyder Delivery Date: Last Updated by: Chelsie Snyder M.D. pt does not recall having SD. No extra maneuvers required. No injury to infant. Name: Pooja. Delivery Date: 05/17/18 Last Updated by: Chelsie Snyder M.D. IOL at 37wEGA for stable cholestasis. . Adelina Monreal. Transferred to [facility] after resp issues. Exam Narrative Exam Narrative: 1.Const: Well-nourished, Well-developed, appearing stated age 2.Eyes: PERRL, no conjunctival injection, and symmetrical lids. 3.ENT: Atraumatic external nose and ears. Moist MM. Neck: Symmetric, trachea midline, No thyromegaly. 4.CVS: +S1/S2, No murmurs or gallops. Peripheral pulses 2+ and equal in all extremities. Brisk capillary refill in all extremities. 5.RESP: Unlabored respiratory effort. Clear to auscultation bilaterally. No wheezes rales or rhonchi 6.GI: Soft, Nontender/Nondistended, No hepatosplenomegaly. No guarding or rebound. 7.MSK: Normocephalic/Atraumatic, Extremities w/o deformity or ttp No cyanosis or clubbing, Normal movement of all extremities 8.Skin: Warm, Dry. No rashes or lesions. 9.Neuro: customer support engineer II-XII grossly intact. Sensation grossly intact, no focal neurologic deficits. 10.Psych: (AAO) x3. Appropriate mood and affect Course Vital Signs Vital signs: Vital Signs Temperature 37.3 C 06/04/22 19:38 Pulse 77 06/04/22 19:38 Respiratory Rate 16 06/04/22 19:38 Blood Pressure 140/76 06/04/22 19:38 Pulse Oximetry 97 06/04/22 19:38 Temperature 37.3 C 06/04/22 19:38 Temperature Source Oral 06/04/22 19:38 Pulse 77 06/04/22 19:38 Respiratory Rate 16 06/04/22 19:38 Respiratory Effort Normal, Non-Labored 06/04/22 19:53 Respiratory Depth Normal 06/04/22 19:53 Respiratory Pattern Normal 06/04/22 19:53 Blood Pressure 140/76 06/04/22 19:38 Blood Pressure Position Supine 06/04/22 19:38 Pulse Oximetry 97 06/04/22 19:38 Oxygen Delivery Method Room Air 06/04/22 19:38 Oxygen Flow Rate 0 06/04/22 19:38 Pain Level 0 06/04/22 19:38 POCUS Exam (ED) Limited Cardiac Exam DATE OF EXAM: 06/04/22 TIME OF EXAM: 20:06 PROVIDER THAT PERFORMED THE STUDY: Isaiah Tapia IS THIS A REPEAT EXAM DURING THIS ENCOUNTER: no REASON FOR EXAM: Chest pain VISUALIZED STRUCTURES: Left atrium, Left ventricle, Right ventricle and Interventricular septum VIEW OBTAINED: Parasternal long-axis and Parasternal short-axis PERTINENT FINDINGS/IMPRESSION: No apparent abnormalities Exam complete
[2022-06-04 20:12] LABS: Abs Immature Grans 0.04 10^3/uL (0.0-0.06); Absolute Basophil Count 0.03 10^3/uL (0.0-0.2); Absolute Eosinophil Count 0.19 10^3/uL (0.0-0.7); Absolute Lymphocyte Count 2.51 10^3/uL (1.2-3.4); Absolute Monocyte Count 0.61 10^3/uL (0.1-0.8); Absolute Neutrophil Count 5.15 10^3/uL (1.2-6.7); Basophils % 0.4; Eosinophils % 2.2; HCT 39.9 % (36.0-46.0); HGB 13.1 g/dL (11.2-15.7); Immature Grans % 0.5; Lymphocytes % 29.4; MCH 27.7 pg (27.0-33.0); MCHC 32.8 % (32.0-36.0); MCV 84 fL (80-95); MPV 10.1 fL (8.0-11.0); Monocytes % 7.2; Neutrophils % 60.3; Platelet Count 335 10^3/uL (130-400); RBC 4.73 10^6/uL (3.93-5.22); RDW 13.2 % (11.7-14.6); RDW-SD 40.5 fL; WBC 8.53 10^3/uL (4.4-10.8)
[2022-06-04 20:46] LABS: ALT 108 U/L (14-59); AST 64 U/L (15-37); Albumin 3.7 g/dL (3.4-5.0); Alkaline Phosphatase 88 U/L (46-116); BUN 15 mg/dL (7-18); Bilirubin, Total 0.3 mg/dL (0.2-1.0); CREATININE 0.8 mg/dL (0.55-1.02); Calcium 8.7 mg/dL (8.5-10.1); Chloride 107 mmol/L (98-107); Estimated GFR 99.09 (mL/min/1.73m2); Glucose 118 mg/dL (74-106); Potassium 3.8 mmol/L (3.5-5.1); Sodium 139 mmol/L (136-145); Total Protein 7.7 g/dL (6.4-8.2); Troponin I < 50 ng/L (<or=60)
[2022-06-04 20:51] LABS: D-Dimer 653 ng/mlFEU (<500)
--- NOTE | 2022-06-04 21:15 | DI.CT_ITS ---
Exam(s) CT CHEST PE CTA EXAM: CT CHEST PE CTA CLINICAL HISTORY: sob, chest tightness, r/o pe. TECHNIQUE: Imaging Protocol: CT angiography of the chest was performed using pulmonary embolus nurys col. Multi planar reconstructions were performed. CONTRAST MATERIAL: Intravenous: Omnipaque 350 Contrast volume: 100 cc COMPARISON: No exams were available for comparison FINDINGS: CHEST: PULMONARY ARTERIES: There are no intraluminal filling defects to suggest acute pulmonary emboli. LUNGS: There are no infiltrates nor evidence of pulmonary infarction.. There are no pleural effusions . MEDIASTINUM: There is no hilar nor mediastinal adenopathy. CARDIAC: Heart size is upper normal. There is no pericardial effusion.Caliber of the thoracic aorta is within normal limits. No evidence of aortic dissection. There is no significant shift of the inte rventricular septum. PARTIALLY VISUALIZED UPPERMOST ABDOMEN: No obvious findings OSSEOUS: No significant osseous lesions.. IMPRESSION: 1. No evidence of acute pulmonary emboli. No evidence of pulmonary infarction.No pleural effusions. 2. No acute pulmonary findings. 3. Essentially negative study. RADIATION DOSE DELIVERED: 551.74mGy.cm Total DLP DATA REPOSITORY: All CT scans at this facility are submitted to the National Radiology Data Registry (NRDR) Dose Index Registry (DIR) with the [employer] (ACR). RADIATION OPTIMIZATION: All CT scans at this facility use at least one of these dose optimization te chniques: automated exposure control; mA and/or kV adjustment per patient size (includes targeted exa ms where dose is matched to clinical indication); or iterative reconstruction.
[2022-06-04] MEDS: Omnipaque 350 MG/ML 100 ML BTL IJ (22:02)
[2022-06-04] MEDS: Normal Saline - Diluent 50 ML VIAL IJ (22:03)
--- NOTE | 2022-06-04 22:50 | DI.VRAD_ITS ---
PROCEDURE INFORMATION: Exam: CTA Chest With Contrast Exam date and time: 06/04/2022 9:59 PM Age: 36 years old Clinical indication: Pain; Chest pressure TECHNIQUE: Imaging protocol: Computed tomographic angiography of the chest with contrast. 3D rendering (Not supervised by radiologist): MIP and/or 3D reconstructed images were created by the technologist. Total images: 1875 COMPARISON: No relevant prior studies available. FINDINGS: Pulmonary arteries: Normal. No pulmonary emboli. Aorta: Unremarkable. No aortic aneurysm. No aortic dissection. Lungs: Unremarkable. No consolidation. No masses. Pleural spaces: Unremarkable. No pneumothorax. No pleural effusion. Heart: Unremarkable. No cardiomegaly. No pericardial effusion. Lymph nodes: Unremarkable. No enlarged lymph nodes. Gallbladder and bile ducts: Cholecystectomy. Bones/joints: Unremarkable. No acute fracture. Soft tissues: Unremarkable. IMPRESSION: 1. No acute cardiopulmonary disease. 2. Cholecystectomy. Dictated and Authenticated by: Kami Ceballos MD. Ordering:KARINA Colon MD
[2022-06-08 11:04] LABS: Hepatitis A Antibody IgM Negative (Negative); Hepatitis B Core Antibody Negative (Negative); Hepatitis B surface Ag Negative (Negative); Hepatitis C Ab w Rflx HCV PCR Negative (Negative)
== END 2022-06-04 23:23 | disposition home or self-care (01) ==
PROVIDERS: Emergency Provider Student in an Organized Health Care Education/Training Program; PCP Nurse Practitioner Family
DX: R07.89 Other chest pain (principal); R79.1 Abnormal coagulation profile; R74.01 Elevation of levels of liver transaminase levels
CPT/HCPCS: 36415; 71275; 80053; 81025; 86704; 86709; 86803; 87340; 93005; 93308; 99285; 84443; 84484; 85025; 85379; 93010; 99283; J3490

== ENCOUNTER 2022-07-02 17:23 | Emergency (ER) | payer MEDICAID, SELFPAY ==
[2022-07-02 17:28] VITALS: BP 143/90; PULSE 72; RESP 16; TEMP 36.7; O2SAT 97
--- NOTE | 2022-07-02 18:14 | ED.GENADUL_ITS ---
Discharge Plan Disposition Patient Disposition: Home Condition: Stable Discharge Details Clinical Impression: Elevated LFTs, Pruritus Primary Care Provider: Alannah Pizano ED Provider: Franco De Oliveira Home Meds and New Rx's Prescriptions: Continued citalopram [Celexa] 10 mg tablet 20 mg PO DAILY cholecalciferol (vitamin D3) 2,000 unit tablet 6,000 unit PO DAILY Discharge Instructions Additional Instructions: your liver function tests were elevated but your bilirubin level was normal follow up with your primary care provider within 1-2 weeks If you feel more ill, have severe pain, difficulty breathing or fevers return to the emergency department Medical Decision Making 36 yo female with hx of cholestasis during , prior cholecystectomy, comes in with 2 days of itching of her hands and feet and is worried about recurrent cholesasis. She denies fevers, chills, chest pain, dyspnea, abdomen pain, rashes. She arrives stable caox4 in no distress. She has clear lungs, no murmurs, soft nontender abdomen, no rashes, no lesions. Unclear etiology for her symptoms, will proceed with cbc, cmp, bilirubin and reassess. No respiratory symptoms and no rashes so doubt allergic reaction or anaphylaxis bilirubin unremarkable, does have elevated lft's which she's had in the past and states she's been told she has fatty liver in the past. HAs no abdominal tenderness and s/p cholecystectomy so do not feel acute imaging indicated. Advised to f/u with pcp, return precautions given Differential Diagnosis Differential Diagnosis: dermatitis, cholestasis Medical Records Medical records reviewed: Yes I reviewed the patient's medical records. HPI General Mode of arrival: ambulatory . Date/Time Provider Initiated Documentation: 07/02/22 17:40 . Limitations to Documentation: no limitations . Information obtained by: patient . History of Present Illness 36 year old F presents to the emergency department with the chief complaint of itching hands/feet, described as moderate, Patient started experiencing this day(s) (2) and it has been constant. No relieving factors improve symptom(s), No exacerbating factors reported . Patient notes no other symptoms.; denies chest pain, fever/chills and shortness of breath. Patient did receive the following treatments prior to arrival, none Related Data Home Medications Medication Instructions Recorded Confirmed cholecalciferol (vitamin D3) 50 6,000 unit PO DAILY 06/07/18 06/04/22 mcg (2,000 unit) tablet citalopram 10 mg tablet (Celexa) 20 mg PO DAILY 06/07/18 06/04/22 Allergies Allergy/AdvReac Type Severity Reaction Status Date / Time seasonal Allergy Uncoded 06/04/22 19:43 General Stated Complaint: GenMedical ARLENE: 3 Review of Systems All systems reviewed & are unremarkable except as noted in HPI and below Constitutional Constitutional: Denies chills, Denies fever(s) and Denies weakness Cardiovascular Cardiovascular: Denies chest pain and Denies dyspnea Respiratory Respiratory: Denies cough and Denies dyspnea Gastrointestinal Gastrointestinal: Denies abdominal pain, Denies nausea and Denies vomiting Integumentary/Breasts Skin/Breast: Denies rash Neurologic Neurologic: Denies weakness PFSH All Active Problems (Updated 07/02/22 @ 19:20 by Franco De Oliveira MD) Chest pain (Acute) Elevated LFTs (Acute) Pruritus (Acute) Abnormal Pap smear of cervix (Acute) LGSIL. Colpo during . Plan Pap PP. Depression (Chronic) exacerbated with this . Currently not living with /FOB. Has psychologist. Cholestasis during in third trimester (Acute) 03/23/18 Bile acids 15 (<10). AST 224. ALT 613. Rx with Ursodeoxycholic Acid. Bile acids and LFTs normalized. Plan: NST's twice weekly. Del between 37-38w. Or 36w if bile acids > 40. (Acute) IOL with 05/17/18 M. [id number] Rah. Social History Smoking/Tobacco Use Status: Never Smoking risk assessment performed?: Yes Alcohol Intake: never Drug use: Never Substance use type: does not use Household members: children and other Details: living with her mom cathleen daughter Pooja. Estranged from FOB/[facility]. Number of Children: 1 Do you feel safe in your relationship?: Yes History History 2 Para 2 Hx # Term Pregnancies 2 Multiple births Hx # Pregnancies Ectopic pregnancies AB induced Hx Number of Living Children 2 AB spontaneous Past Pregnancies Del. Date GA/Weeks # Preg Succ Route Wgt Sex Labor Lgth Anesth esia Location Prov Complic Unknown 40 vaginal 4252.428 g Female shoulder dystocia 05/17/18 37 No vaginal 3146.797 g aoc 05/17/18 No vaginal Male Chelsie Leslie nnor Delivery Date: Last Updated by: Chelsie Fontanez M.D. pt does not recall having SD. No extra maneuvers required. No injury to . Name: Pooja. Delivery Date: 05/17/18 Last Updated by: Chelsie Fontanez M.D. IOL at 37wEGA for stable cholestasis. SVD. Adelina Monreal. Transferred to [facility] [place] [place] NICU after resp issues. Exam Const General: no acute distress Orientation: alert HENMT Head: normal to inspection Ears: external ears normal General nose exam: external nose normal Mouth: moist mucous membranes Eyes General: appearance normal, both eyes and all related structures Neck Neck: normal visual inspection Resp Effort & Inspection: normal respiratory effort and able to speak in complete sentences Cardio Rate: regular rate GI Palpation: soft and nontender Skin General skin exam: no rashes or lesions noted Neuro General: patient alert and patient oriented x3 Extrem General: normal to inspection Psych Mental Status: mental status grossly normal Course Vital Signs Vital signs: Vital Signs Temperature 36.7 C 07/02/22 17:28 Pulse 72 07/02/22 17:28 Respiratory Rate 16 07/02/22 17:28 Blood Pressure 143/90 H 07/02/22 17:28 Pulse Oximetry 97 07/02/22 17:28 Temperature 36.7 C 07/02/22 17:28 Temperature Source Oral 07/02/22 17:28 Pulse 72 07/02/22 17:28 Respiratory Rate 16 07/02/22 17:28 Blood Pressure 143/90 H 07/02/22 17:28 Pulse Oximetry 97 07/02/22 17:28 Oxygen Delivery Method Room Air 07/02/22 17:28 Oxygen Flow Rate 0 07/02/22 17:28
[2022-07-02 18:23] LABS: Bilirubin Small (Negative); Blood Trace-intact (Negative); Clarity Clear (Clear); Glucose Negative (Negative); Ketones Negative (Negative); Leukocyte Esterase Negative (Negative); Nitrite Negative (Negative); Specific Gravity >= 1.030 (1.005-1.025)
[2022-07-02 18:28] LABS: Bacteria Few HPF (Negative); C & S Indicated? No; Casts Negative LPF (Negative); Crystals Negative HPF (Negative); Epithelial Cells Moderate HPF (Negative); Mucus Trace (Negative); WBC 0-2 HPF (0-5)
[2022-07-02 18:29] VITALS: RESP 16
[2022-07-02 18:52] LABS: Abs Immature Grans 0.01 10^3/uL (0.0-0.06); Absolute Basophil Count 0.01 10^3/uL (0.0-0.2); Absolute Eosinophil Count 0.14 10^3/uL (0.0-0.7); Absolute Lymphocyte Count 1.55 10^3/uL (1.2-3.4); Absolute Monocyte Count 0.59 10^3/uL (0.1-0.8); Basophils % 0.2; Eosinophils % 3.3; HCT 39.3 % (36.0-46.0); HGB 12.9 g/dL (11.2-15.7); Immature Grans % 0.2; Lymphocytes % 36.9; MCH 27.5 pg (27.0-33.0); MCHC 32.8 % (32.0-36.0); MCV 84 fL (80-95); MPV 10.3 fL (8.0-11.0); Neutrophils % 45.4; Platelet Count 221 10^3/uL (130-400); RBC 4.69 10^6/uL (3.93-5.22); RDW 13.4 % (11.7-14.6); RDW-SD 41.3 fL
[2022-07-02 18:53] LABS: Absolute Neutrophil Count 1.91 10^3/uL (1.2-6.7)
[2022-07-02 19:08] LABS: ALT 774 U/L (14-59); AST 179 U/L (15-37); Albumin 3.7 g/dL (3.4-5.0); Alkaline Phosphatase 164 U/L (46-116); Anion Gap 8.4 mmol/L (3-11); BUN 11 mg/dL (7-18); Bilirubin, Direct 0.1 mg/dL (0.0-0.2); Bilirubin, Total 0.3 mg/dL (0.2-1.0); CO2 25.6 mmol/L (21.0-32.0); CREATININE 0.7 mg/dL (0.55-1.02); Calcium 8.8 mg/dL (8.5-10.1); Chloride 108 mmol/L (98-107); Estimated GFR 116.31 (mL/min/1.73m2); Glucose 120 mg/dL (74-106); Magnesium 2.1 mg/dL (1.8-2.4); Potassium 3.4 mmol/L (3.5-5.1); Sodium 142 mmol/L (136-145); Total Protein 7.5 g/dL (6.4-8.2)
[2022-07-02 19:15] LABS: PTT Activated 25.8 sec (21.5-31.9)
[2022-07-02 19:39] VITALS: BP 138/82; PULSE 70; RESP 16; TEMP 36.7; O2SAT 97
[2022-07-06 11:46] LABS: Hepatitis A Antibody IgM Negative (Negative); Hepatitis B Core Antibody Negative (Negative); Hepatitis B surface Ag Negative (Negative); Hepatitis C Ab w Rflx HCV PCR Negative (Negative)
== END 2022-07-02 19:39 | disposition home or self-care (01) ==
PROVIDERS: Emergency Provider Emergency Medicine; PCP Nurse Practitioner Family
DX: L29.9 Pruritus, unspecified (principal); R79.89 Other specified abnormal findings of blood chemistry
CPT/HCPCS: 36415; 80053; 86704; 86709; 86803; 87340; 99282; 81003; 81015; 82248; 83735; 85025; 85610; 85730; 99283

== ENCOUNTER 2022-11-14 17:47 | Emergency (ER) | payer MEDICAID, SELFPAY ==
[2022-11-14 18:02] VITALS: BP 115/87; PULSE 78; RESP 20; TEMP 36.7; O2SAT 99
--- NOTE | 2022-11-15 01:39 | NUR.NOTE ---
left without being seen.Nursing Note:
== END 2022-11-15 01:39 | disposition left against medical advice (07) ==
LOC: ER 17:51
PROVIDERS: PCP Nurse Practitioner Family
DX: Z53.21 Procedure and treatment not carried out due to patient leaving prior to being seen by health care provider (principal)

== ENCOUNTER 2024-06-19 01:03 | Emergency (ER) | payer MEDICAID, SELFPAY ==
[2024-06-19] VITALS (28 sets, daily range): BP systolic 126–164; BP diastolic 65–95; PULSE 96–122; RESP 16; TEMP 36.2; O2SAT 94–100
[2024-06-19 01:24] LABS: BE (Venous) 0 mmol/L (-2-3); HCO3 (Venous) 25 mmol/L (23-28); O2 Sat (Venous) 67 %; TCO2 (Venous) 23 mmol/L (24-29); pCO2 (Venous) 47 mmHg (41-51); pH (Venous) 7.34 (7.31-7.41); pO2 (Venous) 36 mmHg
[2024-06-19] MEDS: Normal Saline 1,000 ML 1000 ML IV (01:24)
[2024-06-19 01:25] LABS: Abs Immature Grans 0.05 10^3/uL (0.0-0.06); Absolute Basophil Count 0.03 10^3/uL (0.0-0.2); Absolute Eosinophil Count 0.11 10^3/uL (0.0-0.7); Absolute Lymphocyte Count 2.61 10^3/uL (1.2-3.4); Absolute Monocyte Count 0.79 10^3/uL (0.1-0.8); Absolute Neutrophil Count 6.36 10^3/uL (1.2-6.7); Basophils % 0.3 %; Eosinophils % 1.1 %; HGB 12.6 g/dL (11.2-15.7); Immature Grans % 0.5 %; Lymphocytes % 26.2 %; MCH 28.5 pg (27.0-33.0); MCHC 32.3 % (32.0-36.0); MCV 88 fL (80-95); MPV 10.5 fL (8.0-11.0); Monocytes % 7.9 %; Platelet Count 267 10^3/uL (130-400); RBC 4.42 10^6/uL (3.93-5.22); RDW-SD 41.5 fL; WBC 9.95 10^3/uL (4.4-10.8)
[2024-06-19 02:47] LABS: ALT 68 U/L (14-59); AST 38 U/L (15-37); Albumin 3.7 g/dL (3.4-5.0); Alkaline Phosphatase 97 U/L (46-116); Anion Gap 8.6 mmol/L (3-11); BUN 15 mg/dL (7-18); Bilirubin, Total 0.2 mg/dL (0.2-1.0); CO2 25.4 mmol/L (21.0-32.0); Chloride 106 mmol/L (98-107); Estimated GFR 74.88 (mL/min/1.73m2); Glucose 133 mg/dL (74-106); Potassium 4.2 mmol/L (3.5-5.1); Sodium 140 mmol/L (136-145); Total Protein 7.2 g/dL (6.4-8.2)
[2024-06-19 02:50] LABS: ETHANOL BLOOD < 3.0 mg/dL (<10)
--- NOTE | 2024-06-19 02:53 | ED.GENADUL_ITS ---
Discharge Plan Disposition Patient Disposition: Home Condition: Good Discharge Details Chief Complaint: GenMedical Clinical Impression: Marijuana use Primary Care Provider: Alannah Pizano ED Provider: Isaiah Tapia Home Meds and New Rx's Prescriptions: No Action citalopram [Celexa] 10 mg tablet 20 mg PO DAILY cholecalciferol (vitamin D3) 2,000 unit tablet 6,000 unit PO DAILY Discharge Instructions Additional Instructions: At this time your urine drug screen is positive only for THC. Your symptoms appear consistent with exposure to THC. You have been rehydrated in the remainder of your workup has returned normal and reassuring. Please drink plenty fluids and stay well-hydrated. Please avoid THC Gummies in the future. If you notice any worsening of your symptoms, or any new symptoms such as vomiting, diarrhea, fever, chills, shortness of breath, chest pain, numbness, weakness, or fainting , please return immediately to the emergency department for reevaluation. Please follow up with your primary care provider as soon as possible for reassessment and reevaluation. As always, it was a pleasure participating in your medical care today. Referrals: Alannah Pizano [Primary Care Provider] - [facility] General Date/Time Provider Initiated Documentation: 06/19/24 01:08 . HPI Narrative: 38-year-old female with no significant past medical history except for a cholecystectomy, previous biliary colic, depression, presents today for evaluation of ingestion of cannabinoid substance. Patient states that her ex- was over and gave her an unmarked CBD gummy. After this she became very anxious, paranoid, and felt extremely unsafe. EMS was called and they noted her heart rate to be in the 140s. She was given a 500 cc bolus and 4 mg of Zofran which improved her heart rate down to the 120s, she was brought in for further assessment. She denies any homicidal or suicidal ideations. She denies any current vomiting but does admit to nausea. She denies any chest pain. No other complaints at this time. She denies previous drug use. She denies any recent alcohol use. Related Data Home Medications ?Medication ?Instructions ?Recorded ?Confirmed cholecalciferol (vitamin D3) 50 6,000 unit PO DAILY 06/07/18 06/19/24 mcg (2,000 unit) tablet citalopram 10 mg tablet (Celexa) 20 mg PO DAILY 06/07/18 06/19/24 Allergies Allergy/AdvReac Type Severity Reaction Status Date / Time seasonal Allergy Topical Uncoded 06/19/24 01:11 Irritation General Stated Complaint: GenMedical ARLENE: 3 Exam Narrative Exam Narrative: 1.Const: Well-nourished, Well-developed, appearing stated age 2.Eyes: PERRL, no conjunctival injection, and symmetrical lids. 3.ENT: Atraumatic external nose and ears. Notably dry MM. Neck: Symmetric, trachea midline, No thyromegaly. 4.CVS: +S1/S2, Peripheral pulses 2+ and equal in all extremities. Brisk capillary refill in all extremities. 5.RESP: Unlabored respiratory effort. Clear to auscultation bilaterally. No wheezes rales or rhonchi 6.GI: Soft, Nontender/Nondistended, No hepatosplenomegaly. No guarding or rebound. 7.MSK: Normocephalic/Atraumatic, Extremities w/o deformity or ttp No cyanosis or clubbing, Normal movement of all extremities 8.Skin: Warm, Dry. No rashes or lesions. 9.Neuro: food and beverage associate II-XII grossly intact. Sensation grossly intact, no focal neurologic deficits. 10.Psych: (AAO) x3. Appropriate mood and affect Course Vital Signs Vital signs: Vital Signs Temperature 36.2 C L 06/19/24 01:05 Pulse 118 H 06/19/24 01:05 Respiratory Rate 16 06/19/24 01:05 Blood Pressure 133/94 H 06/19/24 01:05 Pulse Oximetry 100 06/19/24 01:05 Temperature 36.2 C L 06/19/24 01:12 Temperature Source Temporal Artery Scan 06/19/24 01:12 Pulse 118 H 06/19/24 01:12 Respiratory Rate 16 06/19/24 01:12 Respiratory Effort Normal, Non-Labored 06/19/24 01:12 Respiratory Depth Normal 06/19/24 01:12 Respiratory Pattern Normal 06/19/24 01:12 Blood Pressure 133/94 H 06/19/24 01:12 Blood Pressure Position Supine 06/19/24 01:12 Pulse Oximetry 100 06/19/24 01:12 Oxygen Delivery Method Room Air 06/19/24 01:12 Oxygen Flow Rate 0 06/19/24 01:12 Pain Level 0 06/19/24 01:12 Lab/Test Results Lab/Test Results: Laboratory Tests Range/Units 06/19/24 06/19/24 01:18 02:15 WBC (4.4-10.8) 10^3/uL 9.95 RBC (3.93-5.22) 10^6/uL 4.42 Hgb (11.2-15.7) g/dL 12.6 Hct (36.0-46.0) % 39.0 MCV (80-95) fL 88 MCH (27.0-33.0) pg 28.5 MCHC (32.0-36.0) % 32.3 RDW (11.7-14.6) % 13.0 Plt Count (130-400) 10^3/uL 267 MPV (8.0-11.0) fL 10.5 Immature Gran % % 0.5 Neutrophils % % 64.0 Lymphocytes % % 26.2 Monocytes % % 7.9 Eosinophils % % 1.1 Basophils % % 0.3 Nucleated RBC % (0.0-0.3) % 0.0 Absolute Neutrophils (1.2-6.7) 10^3/uL 6.36 Absolute Lymphocytes (1.2-3.4) 10^3/uL 2.61 Absolute Monocytes (0.1-0.8) 10^3/uL 0.79 Absolute Eosinophils (0.0-0.7) 10^3/uL 0.11 Absolute Basophils (0.0-0.2) 10^3/uL 0.03 VBG pH (7.31-7.41) 7.34 VBG pCO2 (41-51) mmHg 47 VBG pO2 mmHg 36 VBG HCO3 (23-28) mmol/L 25 VBG Total CO2 (24-29) mmol/L 23 L VBG O2 Saturation % 67 VBG Base Excess (-2-3) mmol/L 0 Sodium Cancelled 140 Potassium Cancelled 4.2 Chloride Cancelled 106 Carbon Dioxide Cancelled 25.4 Anion Gap Cancelled 8.6 BUN Cancelled 15 Creatinine Cancelled 1.0 Est GFR (CKD-EPI 2020) Cancelled 74.88 Glucose Cancelled 133 H Calcium Cancelled 9.0 Total Bilirubin Cancelled 0.2 AST Cancelled 38 H ALT Cancelled 68 H Alkaline Phosphatase Cancelled 97 Total Protein Cancelled 7.2 Albumin Cancelled 3.7 Ethyl Alcohol Cancelled < 3.0 Medical Decision Making 38-year-old female with no significant past medical history except for a cholecystectomy, previous biliary colic, depression, presents today for evaluation of ingestion of cannabinoid substance. Patient states that her ex- was over and gave her an unmarked CBD gummy. After this she became very anxious, paranoid, and felt extremely unsafe. EMS was called and they noted her heart rate to be in the 140s. She was given a 500 cc bolus and 4 mg of Zofran which improved her heart rate down to the 120s, she was brought in for further assessment. She denies any homicidal or suicidal ideations. She denies any current vomiting but does admit to nausea. She denies any chest pain. No other complaints at this time. She denies previous drug use. She denies any recent alcohol use. Exam demonstrates well-appearing female, pupils mildly dilated. Vital signs notably stable aside for heart rate in the 1 teens. EKG from EMS shows no STEMI. Patient otherwise is notably stable. Symptoms appear consistent with paranoia secondary to THC use. Will rehydrate with a liter of LR, monitor closely and reassess. 4:44 AM After an extended observation time the patient is feeling much better. She has been rehydrated with a liter of IV fluids, blood pressure is improved, heart rate is normalized. No fever. Laboratory workup shows no white count or electrolyte abnormality. Transaminases stable and improving compared to her baseline. Urine drug screen is positive for THC. Alcohol negative. Patient feels well and feels comfortable going home. Discussed red flags for which to return. I have extensively reviewed the treatment plan and discharge instructions with the patient. I have addressed all patient concerns at this time. The patient was made aware of what symptoms to monitor for that would warrant a return to the emergency department. Discussed the plan with the patient, they demonstrate verbal understanding and agreement with our assessment and plan at this time. The documentation in this chart was dictated using [employer] dictation software. Please excuse any dictation errors. Quality:SDOH Health Related Social Needs: No Data to Display PFSH All Active Problems (Updated 08/02/22 @ 00:03 by EULALIA BEST) Marijuana use (Acute) Abnormal Pap smear of cervix (Acute) LGSIL. Colpo during . Plan Pap PP. Depression (Chronic) exacerbated with this . Currently not living with /FOB. Has psychologist. Cholestasis during in third trimester (Acute) 03/23/18 Bile acids 15 (<10). AST 224. ALT 613. Rx with Ursodeoxycholic Acid. Bile acids and LFTs normalized. Plan: NST's twice weekly. Del between 37-38w. Or 36w if bile acids > 40. (Acute) IOL with 05/17/18 M. [id number] Monreal. Social History Smoking/Tobacco Use Status: Never Smoking risk assessment performed?: Yes Alcohol Intake: never Drug use: Never Substance use type: does not use Household members: children and other Details: living with her mom cathleen daughter Pooja. Estranged from FOB/[facility]. Number of Children: 1 Do you feel safe in your relationship?: Yes History History 2 Para 2 Hx # Term Pregnancies 2 Multiple births Hx # Pregnancies Ectopic pregnancies AB induced Hx Number of Living Children 2 AB spontaneous Past Pregnancies Del. Date GA/Weeks # Preg Succ Route Wgt Sex Labor Lgth Anesth esia Location Prov Complic Unknown 40 vaginal 4252.428 g Female shoulder dystocia 05/17/18 37 No vaginal 3146.797 g aoc 05/17/18 No vaginal Male Chelsie Leslie nnor Delivery Date: Last Updated by: Chelsie Fontanez M.D. pt does not recall having SD. No extra maneuvers required. No injury to . Name: Pooja. Delivery Date: 05/17/18 Last Updated by: Chelsie Fontanez M.D. IOL at 37wEGA for stable cholestasis. . Adelina Monreal. Transferred to [facility] [place] NICU after resp issues.
[2024-06-19 04:25] LABS: *AMPHETAMINES SCREEN URINE Negative (Negative); *BARBITURATES SCREEN URINE Negative (Negative); *BENZODIAZEPINES SCREEN URINE Negative (Negative); Cannabinoids THC Positive (Negative); Cocaine Screen,Urine Negative (Negative); METHADONE URINE SCREEN Negative (Negative); OPIATES URINE SCREEN Negative (Negative)
[2024-06-19 04:26] LABS: Tricyclic Antidepressants Negative (Negative)
== END 2024-06-19 05:00 | disposition home or self-care (01) ==
LOC: ER 05:01
PROVIDERS: Emergency Provider Student in an Organized Health Care Education/Training Program; PCP Nurse Practitioner Family
DX: F12.90 Cannabis use, unspecified, uncomplicated (principal)
CPT/HCPCS: 36415; 80053; 80307; 82805; 99283; 80320; 85025

== ENCOUNTER 2024-10-09 08:52 | Outpatient (CLI) | payer MEDICAID, SELFPAY ==
--- NOTE | 2024-10-09 | DI.US_ITS ---
Exam(s) US BREAST LT COMPLETE US BREAST RT COMPLETE MG MAMMO DIAGNOSTIC BI EXAM: MG MAMMO DIAGNOSTIC BI and bilateral complete breast ultrasound CLINICAL HISTORY: LUMP LEFT BREAST N63.23 MASS LOWER OUTER QUAD LT BREAST. TECHNIQUE: Craniocaudal and mediolateral oblique Full Field Digital Mammography views with Computer Aided Diagnosis followed by Tomosynthesis and complete bilateral breast ultrasound. All 4 quadrants, the axilla and retroareolar region of both breast were evaluated sonographically. COMPARISON: This is a baseline examination. There are no priors for comparison. FINDINGS: Mammography/Tomosynthesis: Masses/Architectural Distortion: There are 2 well-circumscribed nodules in the right breast. There is a nodule at about the 6 o'clock position of the right breast measuring 1.2 cm. There is a nodule in the upper outer quadrant of the right breast measuring 8 mm. There are no areas of architectural distortion present. Microcalcifictions: No suspicious pleomorphic-type are seen. Skin Thickening/Nipple Retraction: None. Complete bilateral breast US: Echotexture: Normal appearance of the glandular tissue. At the 4 to 5 o'clock position of the left breast, in the subcutaneous tissues, there is an ill- defined area of decreased echogenicity with mild increased blood flow. This corresponds to the area of inflammation/infection. No drainable abscess is identified. Shadowing: No suspicious foci. Cyst: Please see below under ???solid lesions???. Solid lesions: In the right breast there is a 1.1 x 0.6 x 0.9 cm well- circumscribed hypoechoic nodule at the 6 o'clock position 4 cm from the nipple. This would appear to correspond to the nodule seen at 6 o'clock on the mammogram. There is also a nodule seen at the 9 o'clock position of the right breast 7 cm from the nipple measuring 0.7 x 0.3 x 0.8 cm. It is hypoechoic and avascular. This would appear to correspond to the nodule seen in the upper outer quadrant of the right breast on the mammogram. There is no posterior acoustic shadowing or angled margins. These may reflect benign lesion such as fibroadenomas. There are 2 smaller well-circumscribed cystic lesions seen, 1 at the 6 o'clock position and 1 at the 10 o'clock position. Ductal dilation: None. IMPRESSION: 1. Findings most consistent with a subcutaneous inflammatory/infectious process at the 4 o'clock position of the left breast corresponding to the palpable and visual abnormality. There is no drainable abscess. 2. Well-circumscribed hypoechoic nodules in the right breast at 6 o'clock and 9 o'clock. These have a benign appearance sonographically and may reflect fibroadenomas. 3. A six-month follow-up right mammogram is recommended for re-evaluation. 4. The findings were discussed with the patient on the date of the examination. BI-RADS Category 3 - 6 month - Probably Benign Finding: Recommend follow-up imaging in 6 months Breast Density - Category B - There are scattered areas of fibroglandular density. Breast density Category C or D implies that the patient has dense breast tissue. Dense breast tissue can make it harder to find cancer on a mammogram. Dense breast tissue is also associated with an increased risk of breast cancer. This information about the result of the mammogram report was provided to the patient to raise their awareness. Use this report when you speak with the patient about their risks for breast cancer, which includes their family history. At that time, you may recommend additional screening tests (Ultrasound or MRI) as these tests may add significant information. A negative radiographic report should not delay biopsy if a dominant or clinically suspicious mass is present. Up to ten percent of cancers are not identified on mammography. A negative report may reinforce clinical impression. Adenosis and dense breasts may obscure an underlying neoplasm. False positive reports average 6 to 10%. Patient will receive a letter notifying them of these results.
== END 2024-10-09 09:12 ==
LOC: DI 08:52
PROVIDERS: PCP Nurse Practitioner Family; Visit Provider Physician Assistant Medical
DX: Z12.31 Encounter for screening mammogram for malignant neoplasm of breast (principal); N63.23 Unspecified lump in the left breast, lower outer quadrant
CPT/HCPCS: 76642; 77062; 77066; G0279

== ENCOUNTER 2024-11-06 17:41 | Outpatient (REF) | payer MEDICAID, SELFPAY | END 2024-11-06 17:42 | disposition home or self-care (01) | LOC: NCHCN 17:41 | PROVIDERS: PCP Nurse Practitioner Family; Visit Provider Family Medicine | DX: N61.1 Abscess of the breast and nipple (principal) | CPT/HCPCS: 87077; 87070; 87186; 87205 ==